=== PATIENT | male | born 1965 | race Caucasian/White ===

== ENCOUNTER 2018-06-25 10:49 | Outpatient (RCR) | payer OTHER | END 2018-07-10 15:36 | disposition home or self-care (01) | LOC: WSOH 10:49 | DX: M25.562 Pain in left knee (principal); M25.462 Effusion, left knee; X50.1XXA Overexertion from prolonged static or awkward postures, initial encounter; Y92.480 Sidewalk as the place of occurrence of the external cause; Y93.H1 Activity, digging, shoveling and raking; Y99.0 Civilian activity done for income or pay ==

== ENCOUNTER 2019-05-07 15:15 | Outpatient (RCR) | payer OTHER | END 2019-06-25 12:59 | disposition home or self-care (01) | LOC: WSOH 15:15 | DX: M25.512 Pain in left shoulder (principal); Z98.890 Other specified postprocedural states; M19.90 Unspecified osteoarthritis, unspecified site ==

== ENCOUNTER 2020-09-03 14:14 | Outpatient (RCR) | payer OTHER | END 2020-12-02 | disposition home or self-care (01) | LOC: WSOH | DX: S66.317A Strain of extensor muscle, fascia and tendon of left little finger at wrist and hand level, initial encounter (principal); I10 Essential (primary) hypertension; Z98.890 Other specified postprocedural states ==